=== PATIENT | female | born 1980 | race Caucasian/White ===

== ENCOUNTER 2016-07-29 17:44 | Emergency (ER) | payer OTHER | END 2016-07-29 18:27 | disposition home or self-care (01) | LOC: FER 17:44 | DX: H66.91 Otitis media, unspecified, right ear (principal); J32.9 Chronic sinusitis, unspecified; E11.9 Type 2 diabetes mellitus without complications; Z79.84 Long term (current) use of oral hypoglycemic drugs; I10 Essential (primary) hypertension; E78.5 Hyperlipidemia, unspecified; F17.210 Nicotine dependence, cigarettes, uncomplicated | CPT/HCPCS: 99283 ==

== ENCOUNTER 2021-06-01 09:55 | Emergency (ER) | payer OTHER ==
[~2021-06-01] VITALS: Ht 165.1 cm; Wt 106.6 kg
[~2021-06-01 09:55] MED LIST: PEPCID AC20 MG PO
[2021-06-01] MEDS ORDERED: NORCO 5-325 TA1 EACH PO (11:28)
[2021-06-01] MEDS ORDERED: NAPROXEN500 MG PO (11:28)
== END 2021-06-01 11:58 | disposition home or self-care (01) ==
LOC: FER 09:55
DX: S93.601A Unspecified sprain of right foot, initial encounter (principal); E11.9 Type 2 diabetes mellitus without complications; Z79.4 Long term (current) use of insulin; W10.9XXA Fall (on) (from) unspecified stairs and steps, initial encounter; Y92.009 Unspecified place in unspecified non-institutional (private) residence as the place of occurrence of the external cause
CPT/HCPCS: 73610; 73630